=== PATIENT | male | born 1985 | race Caucasian/White ===

== ENCOUNTER 2017-09-15 16:05 | Emergency (ER) | payer MEDICAID, OTHER ==
[2017-09-15 16:12] VITALS: PULSE 84; RESP 18
--- NOTE | 2017-09-15 16:57 | CT ---
EXAMINATION TYPE: CT brain kevin mota DATE OF EXAM: 09/15/2017 COMPARISON: NONE HISTORY: Facial abrasions and nosebleed after injury. CT DLP: 1631.[address] Brain: Unenhanced CT of the brain was performed. The ventricles, basal cisterns and sulci overlying the cerebral convexities demonstrate a normal appe arance. There is no evidence for intracranial hemorrhage or sulcal effacement. No mass effects are seen. If symptoms persist consider MRI. Osseous calvarium is intact. Facial fractures. See CT facial bones. IMPRESSION: No acute intracranial process CT Cervical Spine: Unenhanced CT of the cervical spine was performed with bone and soft tissue window settings submitted . Coronal and sagittal reconstruction is obtained. There is normal alignment and prevertebral soft tissues. I do not see evidence for fracture or sublu xation. No significant degenerative changes are present. The lung apices are clear. IMPRESSION: No evidence for acute fracture or subluxation of the cervical spine.
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
--- NOTE | 2017-09-15 17:01 | CT ---
EXAMINATION TYPE: CT facial bones wo con DATE OF EXAM: 09/15/2017 COMPARISON: NONE HISTORY: Facial abrasions and nosebleed after injury. CT DLP: 697.[address] of the facial bones was performed in the axial and coronal planes. Bone and soft tissu e window settings are submitted. There is fracture involving the right inferior orbital rim with extension into the orbital floor. No evidence for muscular entrapment. Fracture extends into the anterior wall of the right maxillary sinu s with mild fracture depression noted of approximately 2.7 mm. Small blood level within the right max illary sinus and mucosal thickening. Nasal bone fractures difficult to exclude without depression or displacement. No additional fractures identified with certainty. Globes are intact. Right periorbital and infraorbital soft tissue swelling. Small amount of subcutane ous air within the anterior right facial tissues. IMPRESSION: 1. Fracture involving the right orbital rim with extension into the orbital floor and anterior wall r ight maxillary sinus. Nondisplaced right nasal bone fractures difficult to exclude.
[2017-09-15 18:16] VITALS: BP 145/87; TEMP 97.4
== END 2017-09-15 17:50 | disposition home or self-care (01) ==
LOC: EC 16:05
DX: S02.81XB Fracture of other specified skull and facial bones, right side, initial encounter for open fracture (principal); S02.2XXA Fracture of nasal bones, initial encounter for closed fracture; S01.21XA Laceration without foreign body of nose, initial encounter; S01.511A Laceration without foreign body of lip, initial encounter; F17.200 Nicotine dependence, unspecified, uncomplicated; V00.121A Fall from non-in-line roller-skates, initial encounter; Y92.828 Other wilderness area as the place of occurrence of the external cause
CPT/HCPCS: 12013; 70450; 70486; 72125; 99283

== ENCOUNTER 2018-05-10 12:10 | Emergency (ER) | payer BC, MEDICAID, OTHER ==
[2018-05-10 12:55] VITALS: BP 121/71; PULSE 73; RESP 18; TEMP 98.2
--- NOTE | 2018-05-10 13:09 | ED ---
Lower Extremity Injury HPI - General Chief Complaint: Extremity Injury, Lower Stated Complaint: Knee Injury Time Seen by Provider: 05/10/18 12:55 Source: patient, RN notes reviewed Mode of arrival: wheelchair Limitations: physical limitation - History of Present Illness Initial Comments: This is a 33-year-old male who presents to the emergency department with chief complaint of left knee injury. Patient states that last evening he was " messing around" with his girlfriend. He states that his left knee shifted inward and his foot went out laterally. He states that he heard a pop. Initially he was unable to walk on it but then as the night progressed he was able to bear weight. Patient states that he thought he would "sleep it off." He states that this morning the pain was persistent and that he was only able to bear minimal weight. He did state that he was able to ambulate into the emergency department but did so with difficulty. He states that he has taken ibuprofen, hydrocortisone and applied ice. He states that today the swelling has gotten worse. Denies any other injuries or trauma. Denies fever, chills, chest pain, shortness of breath, abdominal pain, nausea or vomiting, numbness or tingling, headache or vision changes. - Related Data Home Medications Medication Instructions Recorded Confirmed No Known Home Medications 05/10/18 05/10/18 Allergies Allergy/AdvReac Type Severity Reaction Status Date / Time No Known Allergies Allergy Verified 05/10/18 12:55 Review of Systems ROS Statement: Those systems with pertinent positive or pertinent negative responses have been documented in the HPI. ROS Other: All systems not noted in ROS Statement are negative. Past Medical History Past Medical History: No Reported History History of Any Multi-Drug Resistant Organisms: None Reported Past Surgical History: Orthopedic Surgery Additional Past Surgical History / Comment(s): right knee Past Psychological History: No Psychological Hx Reported Smoking Status: Current every day smoker Past Alcohol Use History: Occasional Past Drug Use History: Marijuana General Exam - General Exam Comments Initial Comments: General: Awake and alert, well-developed; in no apparent distress. HEENT: Head atraumatic, normocephalic. Pupils are equal, round and reactive to light. Extraocular movements intact. Oropharynx moist without erythema or exudate. Neck: Supple. Normal ROM. Cardiovascular: Regular rate and rhythm. No murmurs, rubs or gallops. Chest symmetrical. Respiratory: Lungs clear to auscultation bilaterally. No wheezes, rales or rhonchi. Normal respiratory effort with no use of accessory muscles. Musculoskeletal: Normal range of motion of the left knee, however pain is elicited. There is generalized soft tissue swelling and tenderness along the bilateral joint lines. No laxity noted. No pain elicited with valgus or varus stress. Anterior and posterior drawer negative. Sensation is intact. Pedal and posterior tibial pulses are 2+ equal and palpable bilaterally. Skin: [place], warm and dry without rashes or lesions. Neurological: Alert and oriented x3. CN II-XII grossly intact. Speech is fluent and answers are appropriate. No focal neuro deficits. Psychiatric: Normal mood and affect. No overt signs of depression or anxiety noted. Limitations: physical limitation Course Vital Signs 05/10/18 12:52 Temperature 98.2 F Pulse Rate 73 Respiratory 18 Rate Blood Pressure 121/71 O2 Sat by Pulse 98 Oximetry Medical Decision Making - Medical Decision Making This is a 33-year-old male who presents to the emergency department with chief complaint of left knee injury. Patient reports feeling a popping sensation in his left knee. There is diffuse soft tissue swelling and tenderness to the left knee. Patient is able to bear weight and ambulate but does so without difficulty. X-ray of the left knee was obtained which revealed a prominent joint effusion. Knee immobilizer was provided as well as a prescription for crutches. Patient is neurovascularly intact. Recommended rest, ice, elevation and to wear the knee immobilizer while ambulating. Patient will be provided with contact information for follow-up to orthopedics. He is in agreement with plan and voices understanding. All questions were answered. Patient will be discharged home at this time. - Radiology Data Radiology results: report reviewed, image reviewed Left knee x-ray impression: Early changes of osteoarthritis. Prominent joint effusion. Disposition Clinical Impression: Acute internal derangement of knee Disposition: HOME SELF-CARE Condition: Good Instructions: Knee Sprain (ED) Additional Instructions: Please rest, ice, elevate and wear knee immobilizer while ambulating. Please follow up with Dr. Kincaid, orthopedics within 1-2 days. Please follow up with primary care provider within 1-2 days. Return to emergency department if symptoms should worsen or any concerns arise. Is patient prescribed a controlled substance at d/c from ED?: No Referrals: None,Stated [Primary Care Provider] - 1-2 days Mohan Kincaid MD [STAFF PHYSICIAN] - 1-2 days Time of Disposition: 13:48
--- NOTE | 2018-05-10 13:29 | XR ---
EXAMINATION TYPE: XR knee complete LT , 3 VIEWS DATE OF EXAM ORDERED: 05/10/2018 HISTORY: Pain. COMPARISON: None. FINDINGS: There may be some mild lateral joint space loss. There is a prominent joint effusion. No f racture or dislocation is seen. IMPRESSION: 1. EARLY CHANGES OF OSTEOARTHRITIS. 2. PROMINENT JOINT EFFUSION.
== END 2018-05-10 14:02 | disposition home or self-care (01) ==
LOC: EC 12:10
DX: M23.92 Unspecified internal derangement of left knee (principal); F17.200 Nicotine dependence, unspecified, uncomplicated; X50.1XXA Overexertion from prolonged static or awkward postures, initial encounter
CPT/HCPCS: 73562; 99283; 29505; L1830